=== PATIENT | female | born 1950 | race Caucasian/White ===

== ENCOUNTER 2024-12-26 12:16 | Emergency (ER) | payer OTHER, SELFPAY ==
[2024-12-26 12:58] VITALS: BP 157/79; PULSE 64; RESP 19; TEMP 36.5; O2SAT 97; BMI 20.6
--- NOTE | 2024-12-26 13:06 | XR_ITS ---
Examination: CT brain head without contrast. 2-D sagittal coronal reconstructions Date and time of exam:December 26, 2024 1355 hours INDICATIONS: Patient fell today with injury to the head, head pain CTDI: vol (mGy):45.4 DLP: (mGycm):891 Technique: Multiple CT axial sections of the brain have been obtained, 5 mm slice thickness. Contrast has not been administered. 2-D sagittal, coronal reconstructions have been obtained Low dose protocols were performed. One or more of the following dose reduction techniques were used; automated exposure control, adjustment of the mA and/or KV according to patient size, use of iterative reconstruction technique. Findings: No significant ventricular enlargement. Intra-axial or extra-axial hemorrhage density is not seen. No mass effect or midline shift Basal cisterns are not remarkable. Fourth ventricle is midline. Cranial vault intact. Impression: Negative for acute hemorrhage, mass effect or midline shift
--- NOTE | 2024-12-26 13:07 | PD.EDFALL ---
ED Fall Injury RME/HPI General Chief Complaint: Fall Stated Complaint: Fall today hit back of her head Time Seen by Provider: 12/26/24 12:31 Arrival date/time: 12/26/24 12:16 RME / HPI RME / HPI Narrative: 74-year-old female patient was brought in by family for evaluation regarding ground-level fall. Patient was pulling weeds, and fell hitting his head on the back of the head. Patient is complaining of headache. Patient denies any neck pain. Patient denies any other complaints. no medication was taken prior to arrival. Patient is not taking any blood thinner. Patient is ambulatory. Incident happened earlier today. Related Data Home Medications ?Medication ?Instructions ?Recorded ?Confirmed gabapentin 300 mg capsule 300 mg PO TID #0 caps 11/19/15 08/24/19 hydrochlorothiazide 25 mg tablet 25 mg PO QAM #0 tabs 10/27/16 08/24/19 lisinopril 40 mg tablet 40 ml PO QDAY #0 tabs 10/27/16 08/24/19 omeprazole 20 mg capsule,delayed 20 mg PO QDAY ##0 10/27/16 08/24/19 release Previous Rx's ?Medication ?Instructions ?Recorded nitrofurantoin 100 mg PO BID #10 caps 08/24/19 monohydrate/macrocrystals 100 mg capsule (Macrobid) albuterol sulfate 90 mcg/actuation 2 inh inhalation Q4H PRN shortness 09/28/22 aerosol inhaler of breath or wheezing #8.5 grams hydrocodone 5 mg-acetaminophen 325 1 tab PO BID PRN pain #10 tabs 03//24 mg tablet Allergies Allergy/AdvReac Type Severity Reaction Status Date / Time cephalexin Allergy Mild Swelling Verified 12/26/24 12:23 sulfamethoxazole Allergy Mild Swelling Verified 12/26/24 12:23 Weston Pepper Allergy Unknown Swelling Uncoded 12/26/24 12:23 Review of Systems Review of Systems Narrative Review of Systems: Review of system reviewed and within normal limits except mentioned in HPI ED Exam Narrative Physical exam: VITAL SIGNS: Reviewed. GENERAL APPEARANCE: Alert and interactive, follows commands, no acute distress, HEAD AND FACE: Occipital head tenderness, mild scalp swelling no skin breakdown no crepitus ENT: PERRL, pink conjunctivitis, eyelid no trauma, Mucous membrane moist. NECK: Supple, nontender, no nuchal rigidity. CHEST: No tenderness, no crepitus, no paradoxical movement, no retractions. LUNGS: Clear, well ventilated, symmetric, no rales, no wheezing, no ronchi, no stridor, good breath sounds bilaterally. HEART: Regular rate, regular rhythm, no murmur, no gallops. ABDOMEN: Soft, positive bowel sounds, nondistended, no guarding, nontender, no rebound, no masses, RECTAL: Deferred. GENITAL: Deferred. NEUROLOGICAL: Gross motor function intact sensory function intact, Appropriate for age. MUSCULOSKELETAL: low back nontender, full range of motion. EXTREMITIES: Nontender, full range of motion. SKIN: Color pink, dry, no rash, no lacerations, no abrasions, no contusions. LYMPHATICS: Deferred. Course Quality Measures none Orders Category Date Time Status CT head/brain wo con Stat Exams 12/26/24 13:06 Completed Acetaminophen Tab [Tylenol ES Tab] Med 12/26/24 13:11 Discontinued 1,000 mg PO X1 ONE Vital Signs Vital signs: Vital Signs Temperature 97.7 F 12/26/24 12:58 Pulse Rate 64 12/26/24 12:58 Respiratory Rate 19 12/26/24 12:58 Blood Pressure 157/79 H 12/26/24 12:58 Pulse Oximetry (%) 97 12/26/24 12:58 Oxygen Delivery Method Room Air 12/26/24 12:58 Fall MDM Narrative MDM Narrative:: 74-year-old female patient was brought in by family for evaluation regarding ground-level fall. Patient was pulling weeds, and fell hitting his head on the back of the head. Patient is complaining of headache. Patient denies any neck pain. Patient denies any other complaints. no medication was taken prior to arrival. Patient is not taking any blood thinner. Patient is ambulatory. Incident happened earlier today. CT scan of the head came back unremarkable. Results discussed with the patient. Patient appears nontoxic and hemodynamically stable. Patient discharged home and instructed to follow-up with primary care provider in 24 to 48 hours. Instructed to return to the emergency department immediately if worsening of symptoms Patient data External records reviewed:: None Clinical information provided by:: patient Social determinants that could affect healthcare access:: none Patient has the following chronic illnesses:: Hypertension How is presenting disease/condition affected by chronic disease/condition?: uneffected by Evaluation data The following diagnostics were reviewed and interpreted by me:: radiology exam(s) Lab and/or radiology exams considered but not ordered:: None Interpretation Summary: CT scan of the head came back unremarkable Medications / Prescriptions Medications or Prescriptions considered but not ordered:: None Medication administrations:: Medication Administration History Discontinued Medications Acetaminophen (Acetaminophen 500 Mg Tablet) 1,000 mg PO X1 ONE Stop: 12/26/24 13:12 Last Admin: 12/26/24 13:45 Dose: 1,000 mg Documented By: Tylenol Consultations Consultation(s) initiated? (list below): No Diagnosis Fall Differential Diagnosis: syncope, concussion without loss of consciousness and other (Intracranial bleed, scalp contusion, status post fall) Most likely diagnosis given after review of the tests above:: Scalp contusions, status post fall Admission Indicated Admission indicated?: not indicated Admission Request Was there a request for admission?: No Disposition Plan Disposition Plan: Discharge Discharge Attestation Discharge Attestation: The patient and all family members were given an opportunity to ask questions and understood the discharge instructions. Discharge instructions specifically effects, indications for sooner follow up or return to the emergency department, and the expected course of current diagnosis. Patient condition: Stable Discharge Plan Plan Patient Disposition: HOME (Self Care) Disposition Comment: stable Prescriptions/Referrals Prescriptions/Med Rec: No Action gabapentin 300 MG capsule 300 mg PO TID Qty: 0 omeprazole 20 MG capsule,delayed release(DR/EC) 20 mg PO QDAY Qty: 0 hydrochlorothiazide 25 MG tablet 25 mg PO QAM Qty: 0 lisinopril 40 MG tablet 40 ml PO QDAY Qty: 0 nitrofurantoin monohyd/m-cryst [Macrobid] 100 mg capsule 100 mg PO BID Qty: 10 0RF Rx Instructions: must administer with a meal/food hydrocodone-acetaminophen 5-325 mg tablet 1 tab PO BID MDD 10 PRN (Reason: pain) Qty: 10 0RF albuterol sulfate 90 mcg/actuation HFA aerosol inhaler 2 inh inhalation Q4H PRN (Reason: shortness of breath or wheezing) Qty: 8.5 0RF Problem List Clinical Impression: Contusion of scalp, Fall Patient/Caregiver Discharge Instructions Discharge Activity: activity as tolerated Education Materials: ED Scalp Contusion Additional Instructions: Thank you for the opportunity for serving you today. You are stable for discharged . You are advised to: Follow-up with your PCP in 1 to 2 days Return to ED for worsening of symptoms Increase oral fluids Take [id number] Tylenol Motrin as needed for pain Print Language: Irish Stand Alone Forms: Deisy Award Info., Patient Portal Info Letter PA/MOTORCOACH OPERATOR Supervising Physician PA/MOTORCOACH OPERATOR Supervising Physician: MD Patricia
[2024-12-26] MEDS: ACETAMINOPHEN 500 MG TABLET 1000 MG PO (13:45)
== END 2024-12-26 15:50 | disposition home or self-care (01) ==
PROVIDERS: Emergency Provider Emergency Medicine
DX: S00.03XA Contusion of scalp, initial encounter (principal); W18.30XA Fall on same level, unspecified, initial encounter; Y93.H2 Activity, gardening and landscaping
CPT/HCPCS: 70450; 99284; A9270

== ENCOUNTER 2025-01-21 10:51 | Emergency (ER) | payer OTHER, MEDICARE, SELFPAY ==
[2025-01-21 11:07] VITALS: BP 173/73; BP 180/73; PULSE 65; RESP 18; TEMP 36.5; O2SAT 97; BMI 20.7
--- NOTE | 2025-01-21 11:26 | XR_ITS ---
Examination:Left hip AP, lateral, AP pelvis 3 views Technique: Hip AP lateral, AP pelvis, 3 views Exam date and time:January 29 and 59 hours Indications: Patient fell this week with injury to left hip, left hip pain. Findings: No left hip fracture or hip dislocation Right hip bones of the pelvis intact Impression: No acute hip or pelvic fracture.
--- NOTE | 2025-01-21 11:26 | XR_ITS ---
EXAMINATION: CT head/brain wo con, CT facial bones wo con, CT cervical spine wo con ORDERING PROVIDER: BULL Rodgers HISTORY: trauma TECHNIQUE: CT scanner was used in the volumetric, helical non-contrast acquisition of the head, cervical spine, and face with 2-D and 3-D reformats created on a separate workstation and submitted for interpretation. Institutional dose reducing protocols were utilized. RADIATION DOSE: DLP 1372 mGy-cm COMPARISON: 12/26/2024, CT head. 08/30/2019, CT cervical spine. 08/18/2020, MR brain. FINDINGS: No acute intracranial hemorrhage, mass effect, or midline shift. Ventricles and basal cisterns preserved. Scattered periventricular and subcortical white matter hypodensities which can be seen with chronic small vessel ischemic changes. Similar calcifications of the pineal gland. No hyperdense vessel sign. Posterior fossa unremarkable. Paranasal sinuses and mastoid air cells clear. No skull fracture. Small amount of soft tissue edema about the left orbit. No displaced facial bone fracture identified. Dental amalgam limits evaluation. Mild perivascular calcifications. Mild calcifications of the right greater than left carotid bulbs. Again seen is mild soft tissue swelling about the left orbit. Probable postcataract surgical changes. Left scleral calcifications. No acute fracture or dislocation. Unchanged 5.7 cm sclerotic focus in the right aspect of C7, likely bone island. Moderate multilevel uncovertebral hypertrophy most pronounced in the mid to lower cervical spine. Advanced degenerative disc disease most pronounced C4-C5 C5-C6 and C6-C7. There is unchanged trace anterolisthesis of C7 on T1. There is moderate neural foraminal narrowing pronounced on the right at C4-C5. Small multilevel osteophytes and syndesmophytes. Moderate facet arthrosis most pronounced at the cervicothoracic junction. Biapical emphysematous changes and scarring. IMPRESSION: 1. No acute intracranial hemorrhage, mass effect, or midline shift. 2. Mild soft tissue swelling about the left orbit without acute facial bone fracture. 3. Moderate multilevel degenerative changes of the cervical spine without acute fracture or dislocation.
--- NOTE | 2025-01-21 11:31 | PD.EDFALL ---
ED Fall Injury RME/HPI General Chief Complaint: Fall Stated Complaint: FELL X 2 SAT 4AM BY TOILET; HIT HER L) HIP/HEAD Time Seen by Provider: 01/21/25 10:55 Source: patient Arrival date/time: 01/21/25 10:51 74-year-old female with a history of hypertension presents to the emergency room with a chief complaint of a contusion around the left eye, and left hip pain after a ground-level fall that occurred 4 days ago. Mode of arrival: ambulatory Limitations: no limitations Related Data Home Medications ?Medication ?Instructions ?Recorded ?Confirmed gabapentin 300 mg capsule 300 mg PO TID #0 caps 11/19/15 08/24/19 hydrochlorothiazide 25 mg tablet 25 mg PO QAM #0 tabs 10/27/16 08/24/19 lisinopril 40 mg tablet 40 ml PO QDAY #0 tabs 10/27/16 08/24/19 omeprazole 20 mg capsule,delayed 20 mg PO QDAY ##0 10/27/16 08/24/19 release Previous Rx's ?Medication ?Instructions ?Recorded nitrofurantoin 100 mg PO BID #10 caps 08/24/19 monohydrate/macrocrystals 100 mg capsule (Macrobid) albuterol sulfate 90 mcg/actuation 2 inh inhalation Q4H PRN shortness 09/28/22 aerosol inhaler of breath or wheezing #8.5 grams hydrocodone 5 mg-acetaminophen 325 1 tab PO BID PRN pain #10 tabs 01/12/ mg tablet Allergies Allergy/AdvReac Type Severity Reaction Status Date / Time cephalexin Allergy Mild Swelling Verified 01/21/25 10:57 sulfamethoxazole Allergy Mild Swelling Verified 01/21/25 10:57 [place] Allergy Unknown Swelling Uncoded 01/21/25 10:57 Review of Systems Review of Systems Systems Reviewed: All systems reviewed, normal except as documented Constitutional Constitutional: Reports system reviewed and no additional complaints, except as documented, Denies fatigue, Denies fever(s), Denies headache(s) and Denies weakness Eyes Eyes: Reports system reviewed and no additional complaints, except as documented, Denies blurry vision and Denies change in vision ENT Ears, Nose, Mouth, and Throat: Reports system reviewed and no additional complaints, except as documented, Denies otalgia, Denies headache(s), Denies nasal congestion, Denies throat swelling and Denies vertigo Cardiovascular Cardiovascular: Reports system reviewed and no additional complaints, except as documented, Denies chest pain, Denies dyspnea and Denies dyspnea on exertion Respiratory Respiratory: Reports system reviewed and no additional complaints, except as documented, Denies chest congestion, Denies cough, Denies dyspnea, Denies dyspnea on exertion and Denies wheezing Gastrointestinal Gastrointestinal: Reports system reviewed and no additional complaints, except as documented, Denies abdominal pain, Denies cramping, Denies nausea and Denies vomiting Genitourinary Genitourinary: Reports system reviewed and no additional complaints, except as documented Musculoskeletal Musculoskeletal: Reports system reviewed and no additional complaints, except as documented, Reports arthralgias, Denies back pain, Reports joint swelling and Reports limited range of motion Integumentary/Breasts Skin/Breast: Reports system reviewed and no additional complaints, except as documented and Denies wounds Neurologic Neurologic: Reports system reviewed and no additional complaints, except as documented, Denies confusion, Denies headache(s), Denies lack of coordination, Denies vertigo and Denies weakness Psychiatric Psychiatric: Reports system reviewed and no additional complaints, except as documented, Denies anxiety, Denies confusion, Denies depression, Denies paranoia, Denies suicidal ideation and Denies tactile hallucinations Endocrine Endocrine: Reports system reviewed and no additional complaints, except as documented and Denies fatigue Hematologic/Lymphatic Hematologic/Lymphatic: Reports system reviewed and no additional complaints, except as documented and Denies lymphadenopathy Allergic/Immunologic Allergic/Immunologic: Reports system reviewed and no additional complaints, except as documented, Denies throat swelling, Denies urticaria and Denies wheezing ED Exam General Limitations: Present no limitations General appearance: Present alert and in no apparent distress Head Head exam: Present atraumatic, normocephalic and normal inspection Expanded Head Exam Head exam physical: Present contusion; Absent hematoma, raccoon eyes, Stephens's sign, tenderness of temporal artery, CSF rhinorrhea or CSF otorrhea Head image:  1. Left sided black eye Eye Eye exam: Present normal appearance, PERRL and EOMI ENT ENT exam: Present normal exam, normal oropharynx and mucous membranes moist Neck Neck exam: Present normal inspection, full ROM and trachea midline Chest Chest inspection: Present normal inspection and symmetric chest wall rise Respiratory Respiratory exam: Present normal lung sounds bilaterally Cardiovascular Cardiovascular exam: Present regular rate, normal rhythm and normal heart sounds Abdominal Exam Abdominal exam: Present soft and normal bowel sounds Extremities Exam Extremities exam: Present normal inspection and full ROM Back Exam Back exam: Present normal inspection and full ROM Neurological Exam Neurological exam: Present alert, oriented X3, CN II-XII intact and reflexes normal; Absent normal gait Expanded Neurological Exam Patient oriented to: Present person, place and time Speech: Present fluid speech Cranial nerves: Normal: EOM function (II, III, IV, ), facial sensation (V) and facial palsy (VII) Coma scale eye opening: spontaneous Coma scale motor response: obeys commands Coma scale verbal response: oriented Coma scale total: 15 Psychiatric Psychiatric exam: Present normal affect and normal mood Skin Skin exam: Present warm, dry, intact and normal color Course Quality Measures none Orders Category Date Time Status CT cervical spine wo con Stat Exams 01/21/25 11:[address] facial bones wo con Stat Exams 01/21/25 11:[address] head/brain wo con Stat Exams 01/21/25 11:26 Completed XR hip LT w pelvis 2-3V Stat Exams 01/21/25 11:26 Completed Vital Signs Vital signs: Vital Signs Temperature 97.7 F 01/21/25 11:07 Pulse Rate 65 01/21/25 11:07 Respiratory Rate 18 01/21/25 11:07 Blood Pressure 180/73 H 01/21/25 11:07 Pulse Oximetry (%) 97 01/21/25 11:07 Oxygen Delivery Method Room Air 01/21/25 11:07 O2 saturation 97% within normal limits Fall MDM Narrative MDM Narrative:: 74-year-old female with a history of hypertension presents to the emergency room with a chief complaint of a contusion around the left eye, and left hip pain after a ground-level fall that occurred 4 days ago. Patient is hemodynamically stable and in no apparent distress Physical examination shows a normal neurological examination. Patient is a GCS of 15 she is alert and oriented x 3 pupils are PERRLA EOMs are intact CT of the head and brain was completed and was negative for any acute findings. CT cervical neck was completed and was negative for any acute findings. CT of the facial bones was negative for any acute fracture X-ray of the left hip was completed and was negative for any acute fracture. Patient was discharged and educated to follow-up with primary care provider in the next 24 to 48 hours and return to the emergency room for any evidence of worsening signs or symptoms Patient data External records reviewed:: [facility] previous records Clinical information provided by:: patient Social determinants that could affect healthcare access:: none Patient has the following chronic illnesses:: Hypertension How is presenting disease/condition affected by chronic disease/condition?: uneffected by Evaluation data The following diagnostics were reviewed and interpreted by me:: lab results and radiology exam(s) Lab and/or radiology exams considered but not ordered:: Labs and radiology exams considered and ordered Interpretation Summary: CT of the head and brain-FINDINGS: No acute intracranial hemorrhage, mass effect, or midline shift. Ventricles and basal cisterns preserved. Scattered periventricular and subcortical white matter hypodensities which can be seen with chronic small vessel ischemic changes. Similar calcifications of the pineal gland. No hyperdense vessel sign. Posterior fossa unremarkable. Paranasal sinuses and mastoid air cells clear. No skull fracture. Small amount of soft tissue edema about the left orbit. No displaced facial bone fracture identified. Dental amalgam limits evaluation. Mild perivascular calcifications. Mild calcifications of the right greater than left carotid bulbs. Again seen is mild soft tissue swelling about the left orbit. Probable postcataract surgical changes. Left scleral calcifications. No acute fracture or dislocation. Unchanged 5.7 cm sclerotic focus in the right aspect of C7, likely bone island. Moderate multilevel uncovertebral hypertrophy most pronounced in the mid to lower cervical spine. Advanced degenerative disc disease most pronounced C4-C5 C5-C6 and C6-C7. There is unchanged trace anterolisthesis of C7 on T1. There is moderate neural foraminal narrowing pronounced on the right at C4-C5. Small multilevel osteophytes and syndesmophytes. Moderate facet arthrosis most pronounced at the cervicothoracic junction. Biapical emphysematous changes and scarring. IMPRESSION: 1. No acute intracranial hemorrhage, mass effect, or midline shift. 2. Mild soft tissue swelling about the left orbit without acute facial bone fracture. 3. Moderate multilevel degenerative changes of the cervical spine without acute fracture or dislocation. CT cervical neck-FINDINGS: No acute intracranial hemorrhage, mass effect, or midline shift. Ventricles and basal cisterns preserved. Scattered periventricular and subcortical white matter hypodensities which can be seen with chronic small vessel ischemic changes. Similar calcifications of the pineal gland. No hyperdense vessel sign. Posterior fossa unremarkable. Paranasal sinuses and mastoid air cells clear. No skull fracture. Small amount of soft tissue edema about the left orbit. No displaced facial bone fracture identified. Dental amalgam limits evaluation. Mild perivascular calcifications. Mild calcifications of the right greater than left carotid bulbs. Again seen is mild soft tissue swelling about the left orbit. Probable postcataract surgical changes. Left scleral calcifications. No acute fracture or dislocation. Unchanged 5.7 cm sclerotic focus in the right aspect of C7, likely bone island. Moderate multilevel uncovertebral hypertrophy most pronounced in the mid to lower cervical spine. Advanced degenerative disc disease most pronounced C4-C5 C5-C6 and C6-C7. There is unchanged trace anterolisthesis of C7 on T1. There is moderate neural foraminal narrowing pronounced on the right at C4-C5. Small multilevel osteophytes and syndesmophytes. Moderate facet arthrosis most pronounced at the cervicothoracic junction. Biapical emphysematous changes and scarring. IMPRESSION: 1. No acute intracranial hemorrhage, mass effect, or midline shift. 2. Mild soft tissue swelling about the left orbit without acute facial bone fracture. 3. Moderate multilevel degenerative changes of the cervical spine without acute fracture or dislocation. CT facial bones-FINDINGS: No acute intracranial hemorrhage, mass effect, or midline shift. Ventricles and basal cisterns preserved. Scattered periventricular and subcortical white matter hypodensities which can be seen with chronic small vessel ischemic changes. Similar calcifications of the pineal gland. No hyperdense vessel sign. Posterior fossa unremarkable. Paranasal sinuses and mastoid air cells clear. No skull fracture. Small amount of soft tissue edema about the left orbit. No displaced facial bone fracture identified. Dental amalgam limits evaluation. Mild perivascular calcifications. Mild calcifications of the right greater than left carotid bulbs. Again seen is mild soft tissue swelling about the left orbit. Probable postcataract surgical changes. Left scleral calcifications. No acute fracture or dislocation. Unchanged 5.7 cm sclerotic focus in the right aspect of C7, likely bone island. Moderate multilevel uncovertebral hypertrophy most pronounced in the mid to lower cervical spine. Advanced degenerative disc disease most pronounced C4-C5 C5-C6 and C6-C7. There is unchanged trace anterolisthesis of C7 on T1. There is moderate neural foraminal narrowing pronounced on the right at C4-C5. Small multilevel osteophytes and syndesmophytes. Moderate facet arthrosis most pronounced at the cervicothoracic junction. Biapical emphysematous changes and scarring. IMPRESSION: 1. No acute intracranial hemorrhage, mass effect, or midline shift. 2. Mild soft tissue swelling about the left orbit without acute facial bone fracture. 3. Moderate multilevel degenerative changes of the cervical spine without acute fracture or dislocation. X-ray of the left hip-Findings: No left hip fracture or hip dislocation Right hip bones of the pelvis intact Impression: No acute hip or pelvic fracture. Medications / Prescriptions Medications or Prescriptions considered but not ordered:: No medication given Medication administrations:: No medication given Consultations Consultation(s) initiated? (list below): No Diagnosis Fall Differential Diagnosis: other (Ground-level fall/closed head injury) Most likely diagnosis given after review of the tests above:: Closed head injury Admission Indicated Admission indicated?: not indicated Admission Request Was there a request for admission?: No Disposition Plan Disposition Plan: Discharge Discharge Attestation Discharge Attestation: The patient and all family members were given an opportunity to ask questions and understood the discharge instructions. Discharge instructions specifically effects, indications for sooner follow up or return to the emergency department, and the expected course of current diagnosis. Patient condition: Stable Discharge Plan Plan Patient Disposition: HOME (Self Care) Disposition Comment: Stable Prescriptions/Referrals Prescriptions/Med Rec: No Action gabapentin 300 MG capsule 300 mg PO TID Qty: 0 omeprazole 20 MG capsule,delayed release(DR/EC) 20 mg PO QDAY Qty: 0 hydrochlorothiazide 25 MG tablet 25 mg PO QAM Qty: 0 lisinopril 40 MG tablet 40 ml PO QDAY Qty: 0 nitrofurantoin monohyd/m-cryst [Macrobid] 100 mg capsule 100 mg PO BID Qty: 10 0RF Rx Instructions: must administer with a meal/food hydrocodone-acetaminophen 5-325 mg tablet 1 tab PO BID MDD 10 PRN (Reason: pain) Qty: 10 0RF albuterol sulfate 90 mcg/actuation HFA aerosol inhaler 2 inh inhalation Q4H PRN (Reason: shortness of breath or wheezing) Qty: 8.5 0RF Referrals: Patt Garcia MD [Primary Care Provider] - In 1 week Problem List Clinical Impression: Ground-level fall, Closed head injury, Contusion of face Patient/Caregiver Discharge Instructions Education Materials: Bruises (Contusions), ED Facial Contusion, ED Head Injury (Adult) Additional Instructions: Please follow-up with your primary care provider in the next [address] of your head and neck were negative for any acute findings. Your CT of your facial bones was negative for any acute fractures X-ray of your left hip was completed and was negative for any acute fracture For any evidence of worsening signs or symptoms return to the emergency room immediately Print Language: Upper Sorbian Stand Alone Forms: Deisy Award Info., Patient Portal Info Letter TIMOTHY/BULL Supervising Physician PA/BULL Supervising Physician: Dr. MAS
== END 2025-01-21 13:58 | disposition home or self-care (01) ==
PROVIDERS: Emergency Provider Emergency Medicine; PCP Internal Medicine
DX: S00.12XA Contusion of left eyelid and periocular area, initial encounter (principal); S00.83XA Contusion of other part of head, initial encounter; M47.812 Spondylosis without myelopathy or radiculopathy, cervical region; S19.9XXA Unspecified injury of neck, initial encounter; S79.912A Unspecified injury of left hip, initial encounter; W18.30XA Fall on same level, unspecified, initial encounter
CPT/HCPCS: 70450; 70486; 72125; 73502; 99284

== ENCOUNTER 2025-04-26 00:02 | Emergency (ER) | payer OTHER, SELFPAY ==
[2025-04-26 00:03] VITALS: BMI 20.1
--- NOTE | 2025-04-26 00:05 | EKG_ITS ---
[facility] Test Date: 2025-04-26 Pat Name: JAY ORTEGA Department: Room: - Gender: Female [employer]: : 1950 Requested By: ED Temporary Provider Order Number: [id number] Reading MD: ED Temporary Provider Measurements Intervals [place] Rate: 56 P: 35 MT: 155 QRS: 35 QRSD: 85 T: 36 QT: 384 QTc: 371 Interpretive Statements SINUS BRADYCARDIA Compared to ECG 06/29/2024 21:53:23 Sinus rhythm no longer present T-wave abnormality no longer present /store/S0/[id number].pdf
[2025-04-26 00:12] VITALS: BP 197/77; PULSE 64; RESP 17; TEMP 36.6; O2SAT 98
--- NOTE | 2025-04-26 00:14 | XR_ITS ---
Examination: CT chest, without intravenous contrast. Sagittal and coronal 2-D reconstructions. Exam date and time: April 26, 2025 0122 hours Comparison September 28, 2022 INDICATIONS: Left chest pain beginning today CTDI:vol (mGy) 7 DLP: (mGycm) 299 Technique: Multiple 3.0 mm axial sections of the chest to been obtained. Bone and lung density settings are obtained. Sagittal and coronal 2-D reconstructions have been obtained. Low dose protocols were performed. One or more of the following dose reduction techniques were used; automated exposure control, adjustment of the mA and/or KV according to patient size, use of iterative reconstruction technique. Findings: Thoracic aortic calcification, no aneurysmal dilatation Pulmonary artery segments are not enlarged Significant calcification left anterior descending coronary artery Mild enlargement cardiac contour No paratracheal tracheobronchial or bronchopulmonary adenopathy At least 4 subcentimeter noncalcified pulmonary nodules No pneumonia or pulmonary edema Large liver cyst again noted Spleen is not enlarged Gallbladder is not diagnostically visualized No pancreatic or adrenal mass Kidneys partially visualized no hydronephrosis Moderate thoracic spondylosis Impression : Significant calcification left anterior descending coronary artery. No pathologic mediastinal lymphadenopathy. No pneumonia or pulmonary edema At least 4 subcentimeter noncalcified pulmonary nodules, in the 2 to 3 mm range, with this study as baseline recommend 6 month follow-up CT chest without contrast
--- NOTE | 2025-04-26 00:22 | PD.EDCHEST ---
ED Chest Pain RME/HPI General Chief Complaint: Chest Pain Stated Complaint: SUDDEN PAIN TO LEFT CHEST PAIN Time Seen by Provider: 04/26/25 00:20 Arrival date/time: 04/26/25 00:02 RME / HPI RME / HPI narrative: This section includes all my notes and documentations, including HPI, PE, and ED course. Lane Marroquin MD HPI: 75 y/o female presents with left-sided chest pain just prior to arrival, about an hour ago. Was on the floor in supine position playing with her dog when the pain started. Worked in her garden all day today. With certain movement and deep breathing, the pain is worse. No shortness of breath. No unusual fatigue or malaise. No nausea or vomiting. No palpitations. No leg pain or swelling. No other complaints. ROS: All negative except as documented in HPI. Physical Exam: General: Alert and oriented. No acute distress when remaining still. High BP noted. Eyes: Conjunctivae and lids clear. ENT: No nasal congestion. Neck: Supple. Heart: RRR. Lungs: No respiratory distress. Good air movement. No rhonchi, wheezing, rales. Chest: Palpation of the anterior chest, left of the sternum and inferiorly, reproduces her pain. Abdomen: Soft and nontender. Skin: Warm and dry. Neuro: Alert and oriented X 3. I reviewed all diagnostic test results: My interpretation of the EKG is: Sinus rhythm (56 bpm) with nonspecific ST-T changes. My review of the chest CT report is no acute findings. Blood tests unremarkable including troponin. At this point, diagnoses include: Chest wall pain. Treatment here included: Catapres. BP improved. Recommended more outpatient cardiac workup. Based on my best medical judgment, made decision no further evaluation or treatment indicated at this time. Patient understands and agrees to the discharge instructions customized and printed, see below. Discharge instructions from Dr. Marroquin: 1. After extensive evaluation, there is no life-threatening condition.? Such as heart attack or pneumothorax (collapsed lung). 2. Your pain is originating from the chest wall and not from an internal organ.? The chest wall has many joints and muscles between the ribs, so sprains and strains are common.?? 3. Apply ice or heat if helpful.? Tylenol/ibuprofen as needed. 4. See a private doctor on 04/27/2025 for recheck and further care. To make sure there is no serious underlying heart condition, ask to help you get more tests for your heart that cannot be done here in the ER.? Such as Holter Monitor (cardiac monitoring at home from a day to even a month), heart stress test (on treadmill or with medication), echocardiogram (imaging of your heart structures), heart catherization (checking for blockages in your heart arteries), and a referral to see a Brokerage Office Manager.? 5. Seek immediate medical care with worsening or with any concerns.?? Lane Marroquin MD Related Data Home Medications ?Medication ?Instructions ?Recorded ?Confirmed gabapentin 300 mg capsule 300 mg PO TID #0 caps 11/19/15 08/24/19 hydrochlorothiazide 25 mg tablet 25 mg PO QAM #0 tabs 10/27/16 08/24/19 lisinopril 40 mg tablet 40 ml PO QDAY #0 tabs 10/27/16 08/24/19 omeprazole 20 mg capsule,delayed 20 mg PO QDAY ##0 10/27/16 08/24/19 release Previous Rx's ?Medication ?Instructions ?Recorded nitrofurantoin 100 mg PO BID #10 caps 08/24/19 monohydrate/macrocrystals 100 mg capsule (Macrobid) albuterol sulfate 90 mcg/actuation 2 inh inhalation Q4H PRN shortness 09/28/22 aerosol inhaler of breath or wheezing #8.5 grams hydrocodone 5 mg-acetaminophen 325 1 tab PO BID PRN pain #10 tabs 03//24 mg tablet Allergies Allergy/AdvReac Type Severity Reaction Status Date / Time cephalexin Allergy Mild Swelling Verified 04/26/25 00:02 sulfamethoxazole Allergy Mild Swelling Verified 04/26/25 00:02 [place] Pepper Allergy Unknown Swelling Uncoded 04/26/25 00:02 Review of Systems Review of Systems Systems Reviewed: All systems reviewed, normal except as documented Past Medical History Surgical History SURGICAL: Positive Hysterectomy Social History SMOKING STATUS: Former smoker ED Exam Narrative Physical exam: Refer to HPI above Course Quality Measures none Orders Category Date Time Status EKG (ED ONLY) *Do not use* NOW Care 04/26/25 00:[address] chest wo con Stat Exams 04/26/25 00:14 Taken EKG (ED Only) Stat Exams 04/26/25 00:05 Draft BNP [B-Type Natriuretic Peptide] Stat Lab 04/26/25 00:30 Completed Bilirubin,Direct Stat Lab 04/26/25 00:30 Completed CBC Stat Lab 04/26/25 00:30 Completed CMP [Comprehensive Metabolic Panel] Stat Lab 04/26/25 00:30 Completed Free T4 (Free Thyroxine) Stat Lab 04/26/25 00:30 Completed Magnesium Stat Lab 04/26/25 00:30 Completed TSH [Thyroid Stimulating Hormone] Stat Lab 04/26/25 00:30 Completed Troponin I Stat Lab 04/26/25 00:30 Completed cloNIDine HCL [Catapres] Med 04/26/25 00:20 Discontinued 0.1 mg PO X1 ONE Vital Signs Vital signs: Vital Signs Temperature 98 F 04/26/25 00:12 Pulse Rate 64 04/26/25 00:12 Respiratory Rate 17 04/26/25 00:12 Blood Pressure 197/77 H 04/26/25 00:12 Pulse Oximetry (%) 98 04/26/25 00:12 Oxygen Delivery Method Room Air 04/26/25 00:12 Chest Pain MDM Narrative MDM Narrative:: Scribe Attestation: I, Ese Mcdonald, am scribing for and in the presence of Dr. Marroqiun. Provider Notation: Although this document has been carefully reviewed, there may still be some phonetic and other typographical errors.? These errors are purely grammatical due to imperfections in the software program and should not be construed in any way to? compromise the substance of the patient's medical care during this visit. 75 y/o female presents with sudden severe pain to the left breast s/p laying on the floor x 30 minutes. Denies shortness of breath. No other complaints. Patient data External records reviewed:: [facility] previous records (Reviewed prior ED records from 01/21/25. Patient was seen for Closed head injury.) Clinical information provided by:: patient Social determinants that could affect healthcare access:: none Patient has the following chronic illnesses:: None reported How is presenting disease/condition affected by chronic disease/condition?: no chronic disease Evaluation data The following diagnostics were reviewed and interpreted by me:: lab results, radiology exam(s) and EKG tracing(s) (My interpretation of the EKG is: Sinus rhythm (56 bpm) with nonspecific ST-T changes. Lane Marroquin MD) Lab and/or radiology exams considered but not ordered:: None Interpretation Summary: I reviewed all diagnostic test results: My interpretation of the EKG is: Sinus rhythm (56 bpm) with nonspecific ST-T changes. My review of the chest CT report is no acute findings. Blood tests unremarkable including troponin. Medications / Prescriptions Medications or Prescriptions considered but not ordered:: None Medication administrations:: Medication Administration History Discontinued Medications Clonidine (Clonidine Hcl 0.1 Mg Tablet) 0.1 mg PO X1 ONE Stop: 04/26/25 00:21 Last Admin: 04/26/25 00:28 Dose: 0.1 mg Documented By: ROSELIA Mcgrath Consultations Consultation(s) initiated? (list below): No Diagnosis Chest Pain Differential Diagnosis: stable angina, unstable angina pectoris, atypical chest pain, st elevation myocardial infarction, costochondritis, chest pain and other (Chest wall pain) Most likely diagnosis given after review of the tests above:: Chest wall pain Admission Indicated Admission indicated?: not indicated Explain why admission is indicated or not indicated:: With no severe condition, there was no indication for admission. Admission Request Was there a request for admission?: No Disposition Plan Disposition Plan: Discharge Discharge Attestation Discharge Attestation: The patient and all family members were given an opportunity to ask questions and understood the discharge instructions. Discharge instructions specifically effects, indications for sooner follow up or return to the emergency department, and the expected course of current diagnosis. Patient condition: Stable Discharge Plan Plan Patient Disposition: HOME (Self Care) Prescriptions/Referrals Prescriptions/Med Rec: No Action gabapentin 300 MG capsule 300 mg PO TID Qty: 0 omeprazole 20 MG capsule,delayed release(DR/EC) 20 mg PO QDAY Qty: 0 hydrochlorothiazide 25 MG tablet 25 mg PO QAM Qty: 0 lisinopril 40 MG tablet 40 ml PO QDAY Qty: 0 nitrofurantoin monohyd/m-cryst [Macrobid] 100 mg capsule 100 mg PO BID Qty: 10 0RF Rx Instructions: must administer with a meal/food hydrocodone-acetaminophen 5-325 mg tablet 1 tab PO BID MDD 10 PRN (Reason: pain) Qty: 10 0RF albuterol sulfate 90 mcg/actuation HFA aerosol inhaler 2 inh inhalation Q4H PRN (Reason: shortness of breath or wheezing) Qty: 8.5 0RF Referrals: No Primary/Family,Physician [Primary Care Provider] - In 1 week Problem List Clinical Impression: Chest wall pain Patient/Caregiver Discharge Instructions Discharge Activity: activity as tolerated Education Materials: ED Chest Wall Pain, Costochondritis Additional Instructions: Discharge instructions from Dr. Marroquin: 1. After extensive evaluation, there is no life-threatening condition.? Such as heart attack or pneumothorax (collapsed lung). 2. Your pain is originating from the chest wall and not from an internal organ.? The chest wall has many joints and muscles between the ribs, so sprains and strains are common.?? 3. Apply ice or heat if helpful.? Tylenol/ibuprofen as needed. 4. See a private doctor on 04/27/2025 for recheck and further care. To make sure there is no serious underlying heart condition, ask to help you get more tests for your heart that cannot be done here in the ER.? Such as Holter Monitor (cardiac monitoring at home from a day to even a month), heart stress test (on treadmill or with medication), echocardiogram (imaging of your heart structures), heart catherization (checking for blockages in your heart arteries), and a referral to see a Brokerage Office Manager.? 5. Seek immediate medical care with worsening or with any concerns.?? Print Language: Bruneian Stand Alone Forms: Deisy Award Info., Patient Portal Info Letter
[2025-04-26 00:28] VITALS: BP 197/77; PULSE 64
[2025-04-26] MEDS: cloNIDine HCL 0.1 MG TABLET PO (00:28)
[2025-04-26 00:51] LABS: Basophils # (Auto) 0.1 Thou/mm3 (0.0-0.2); Basophils % (Auto) 1 % (0-2.5); Eosinophils # (Auto) 0.4 Thou/mm3 (0.0-0.5); Eosinophils % (Auto) 5 % (0-10); Hematocrit 38.6 % (36.0-46.0); Immature Granulocytes % (Auto) 0 % (0-0); Immature Granulocytes Auto 0.02 Thou/mm3 (0.00-0.00); Lymphocytes # (Auto) 3.2 Thou/mm3 (1.0-4.8); Lymphocytes % (Auto) 32 % (10-50); Mean Corpuscular HGB Conc 33.7 g/dl (31.0-37.0); Mean Corpuscular Hemoglobin 30.8 pg (25.0-35.0); Mean Corpuscular Volume 92 fL (80-100); Monocytes # (Auto) 1.1 Thou/mm3 (0.0-0.8); Monocytes % (Auto) 11 % (0-12); Neutrophils % (Auto) 51 % (37-80); Nucleated Red Blood Cell % 0 /100 WBC (0); Platelet Count 196 Thou/mm3 (140-440); RDW Standard Deviation 45.3 fL (36.4-46.3); Red Blood Count 4.22 Miln/mm3 (4.00-5.20); White Blood Count 9.9 Thou/mm3 (3.6-11.0)
[2025-04-26 01:03] LABS: B-Type Natriuretic Peptide 31 pg/mL (0-100)
[2025-04-26 01:06] LABS: Alanine Aminotransferase 19 U/L (10-49); Albumin, Serum 4.1 gm/dL (3.4-4.8); Alkaline Phosphatase 68 U/L (46-116); Anion Gap 8 (7-16); Aspartate Amino Transferase 29 U/L (0-34); BUN/Creatinine Ratio 20 Ratio (12-20); Bilirubin,Direct 0.2 mg/dL (0.0-0.3); Bilirubin,Total 0.7 mg/dL (0.3-1.2); Blood Urea Nitrogen 20 mg/dL (9-23); Calcium 9.3 mg/dL (8.3-10.6); Calcium (Corrected) 9.3 mg/dL (8.5-10.1); Carbon Dioxide 29.4 mMol/L (20.0-31.0); Chloride 107 mMol/L (98-107); Estimated Creatinine Clearance 37.1 mL/min (>60); Free T4 (Free Thyroxine) 1.24 ng/dL (0.89-1.76); Globulin 2.1 gm/dL (2.3-3.5); Glucose 99 mg/dL (74-106); Magnesium 2.1 mg/dL (1.6-2.6); Osmolality,Calculated 289 (275-295); Potassium 3.9 mMol/L (3.4-5.1); Sodium 144 mMol/L (136-145); Thyroid Stimulating Hormone 2.54 uIU/mL (0.55-4.78); Total Protein 6.2 gm/dL (5.7-8.2); Troponin I < 0.020 ng/mL (0.0-0.045); eGFR 58 See Note
[2025-04-26 02:03] VITALS: BP 111/63; PULSE 61; RESP 17; TEMP 36.8; O2SAT 98
--- NOTE | 2025-04-26 02:48 | PRELIM_ITS ---
CT scan of the chest without intravenous contrast (axial sections with sagittal and coronal reformats) April 26, 2025 0122 hours Clinical History: Severe left chest pain (breast area) Comparison: None available at the time of this report. Findings: The lungs are clear. No evidence of pleural effusion or pneumothorax. The mediastinum demonstrates no evidence of mass or lymphadenopathy. The thoracic aorta is unremarkable. There is no pericardial effusion. The osseous structures are unremarkable. Hypodense lesion in the left liver lobe measures 5.5 cm. Coronary arteries calcifications. Dilated left atrium. Impression: Coronary arteries calcifications. If acute myocardial infarction is clinically suspected consider correlation with troponin. Dilated left atrium. Hypodense liver lesion, consider follow-up with MRI for characterization. Report Electronically Signed By: Jj Zhu 04/26/2025 2:48:16 AM [EST]
== END 2025-04-26 03:42 | disposition home or self-care (01) ==
PROVIDERS: Emergency Provider Emergency Medicine
DX: R07.89 Other chest pain (principal); R00.1 Bradycardia, unspecified
CPT/HCPCS: 36415; 71250; 80053; 82248; 83735; 83880; 84439; 84443; 84484; 85025; 93005; 99284; A9270

== ENCOUNTER → 2025-07-23 | Outpatient (CLI) | payer OTHER, SELFPAY ==
--- NOTE | 2025-07-23 08:30 | XR_ITS ---
Examination: Screening digital mammography, bilateral Computer aided detection 3-D breast Tomosynthesis, bilateral Date and time of exam: July 23, 2025 0830 hours Indication: Screening Technique: Nonmagnified MLO, CC views of the breasts to been obtained, reconstructed from 3-D Tomosynthesis images. R2 computer aided detection program utilized for evaluation of suspicious masses and/or abnormal calcifications. 3-D Tomosynthesis images obtained. Findings: The breasts are heterogeneously dense, which may obscure small masses 6 mm nodule upper outer left breast Benign calcifications Impression: BI-RADS Category 0: Incomplete: Need additional imaging evaluation Recommend follow-up spot tomographic views of 6 mm nodule upper outer left breast as well as left breast sonography to complete the workup
== END | disposition home or self-care (01) ==
PROVIDERS: Referring Provider Internal Medicine; Visit Provider Internal Medicine
DX: Z12.31 Encounter for screening mammogram for malignant neoplasm of breast (principal); N63.21 Unspecified lump in the left breast, upper outer quadrant
CPT/HCPCS: 77063; 77067

== ENCOUNTER → 2025-09-03 | Outpatient (CLI) | payer OTHER, SELFPAY ==
--- NOTE | 2025-09-03 09:30 | XR_ITS ---
Examination: Diagnostic digital mammography, unilateral, left Computer aided detection 3-D breast Tomosynthesis, unilateral Date and time of exam: September 03, 2025, 0927 hours INDICATIONS: Mammogram 07/23/2025 6 mm nodule upper outer left breast Technique: Nonmagnified MLO, CC views of the left breast have been obtained, reconstructed from 3-D Tomosynthesis images. R2 computer aided detection program utilized for evaluation of suspicious masses and/or abnormal calcifications. 3-D Tomosynthesis images obtained. Findings: The breast is heterogeneously dense, which may obscure small masses Focal asymmetry remains outer left breast on the spot compression cc view Impression: BI-RADS category 0: Incomplete: Need additional imaging evaluation Follow-up left breast sonography as needed
== END | disposition home or self-care (01) ==
PROVIDERS: Referring Provider Internal Medicine; Visit Provider Internal Medicine
DX: R92.8 Other abnormal and inconclusive findings on diagnostic imaging of breast (principal)
CPT/HCPCS: 77061; 77065; G0279